=== PATIENT | male | born 1955 | race Hispanic/Latino ===

== ENCOUNTER 2017-11-26 21:19 | Emergency (ER) | payer SELFPAY ==
[2017-11-26 21:38] VITALS: RESP 16; O2SAT 96
--- NOTE | 2017-11-26 22:18 | C.PDOC ---
History Of Present Illness 62 y/o M c PMHx smoking p/w cough x 2 weeks. Cough is dry, associated with L sided rib pain only when coughing. Denies hemoptysis or recent travel. Time Seen by Provider: 11/26/17 21:54 Chief Complaint (Nursing): Shortness Of Breath Past Medical History Vital Signs: Last Vital Signs Temp 98.0 F 11/26/17 21:23 Pulse 80 11/26/17 21:23 Resp 16 11/26/17 21:37 BP 145/89 11/26/17 21:23 Pulse Ox 96 11/26/17 22:19 - Medical History PMH: Anxiety Family History: States: No Known Family Hx - Social History Hx Alcohol Use: No Hx Substance Use: Yes Review Of Systems Except As Marked, All Systems Reviewed And Found Negative. Cardiovascular: Negative for: Orthopnea Gastrointestinal: Negative for: Vomiting Physical Exam - Physical Exam Additional Physical Exam Comments: Constitutional: No acute distress. Head: Normocephalic. Atraumatic. Eyes: PERRL. ENT: Moist mucous membranes. Neck: Supple. Cardiovascular: Regular rate. Radial pulse 2+ bilaterally. Chest: Reproducible tenderness. Respiratory: Clear to auscultation bilaterally. GI: Soft. Nontender. Nondistended. Back: No CVA tenderness. Musculoskeletal: No tenderness or swelling of extremities. Skin: No rash. Neurologic: Alert, no focal deficit. ED Course And Treatment O2 Sat by Pulse Oximetry: 96 Medical Decision Making Medical Decision Making: CXR to exclude pneumonia was negative. Cough of this duration typically allergies vs COPD vs GERD. Advised f/u with primary care. Disposition - Disposition Disposition: HOME/ ROUTINE Disposition Time: 23:02 Condition: STABLE Prescriptions: Benzonatate [Tessalon Perles] 200 mg PO TID #30 sgl Instructions: Cough in Adults Forms: [facility] ([place]) - Clinical Impression Clinical Impression: Cough
[2017-11-26 23:08] VITALS: BP 136/82; PULSE 82; TEMP 98.2
--- NOTE | 2017-11-27 12:44 | RAD ---
HISTORY: COMPARISON: No prior. TECHNIQUE: Chest PA and lateral FINDINGS: LINES AND TUBES: None. LUNG AND PLEURA: The lungs are well inflated. There is peribronchial thickening and subsegmental atelectasis in the lung bases. No pleural effusion or pneumothorax. No focal consolidation. HEART AND MEDIASTINUM: The heart is not enlarged. The hilar and mediastinal contours are within normal limits. SKELETAL STRUCTURES: The bony structures are within normal limits for the patient's age. VISUALIZED UPPER ABDOMEN: Normal. OTHER FINDINGS: None. IMPRESSION: Findings are most compatible with reactive small airway disease/ viral bronchitis. No lobar pneumonia.
--- NOTE | 2017-11-28 19:57 | CARD ---
APPROVED REPORT EKG Measurement Heart [id number] <Conclusion> Normal sinus rhythm Normal ECG
== END 2017-11-26 23:09 | disposition home or self-care (01) ==
LOC: C.ER 21:19
DX: R05 Cough (principal)
CPT/HCPCS: 71046; 96372; 99284; J1885